=== PATIENT | female | born 1985 | race Asian ===

== ENCOUNTER 2017-09-25 02:29 | Emergency (ER) | payer OTHER ==
[~2017-09-25] VITALS: Ht 172.7 cm; Wt 61.8 kg
[2017-09-25] MEDS ORDERED: ONDANSETRON 2MG/ML, 2ML ONE (02:55)
[2017-09-25] MEDS ORDERED: MORPHINE SULFATE 4 MG/ML, 1ML ONE (02:55)
[2017-09-25] MEDS ORDERED: KETOROLAC 30 MG/1 ML ONE (02:55)
[2017-09-25] MEDS ORDERED: ONDANSETRON 2MG/ML, 2ML IVPush ONE (03:00)
[2017-09-25] MEDS ORDERED: MORPHINE SULFATE 4 MG/ML, 1ML IVPush PRN (03:00)
[2017-09-25] MEDS ORDERED: SODIUM CHLORIDE 0.9% 1,000ML IV ONE (03:00)
[2017-09-25] MEDS ORDERED: KETOROLAC 30 MG/1 ML IVPush ONE (03:00)
[2017-09-25 03:09] LABS: BASOPHILS % (AUTO) 0 % (0-1); EOSINOPHILS # (AUTO) 0.01 x10^3/uL (0-0.4); EOSINOPHILS % (AUTO) 0 % (1-7); LYMPHOCYTES # (AUTO) 0.81 x10^3/uL (1-3.4); LYMPHOCYTES % (AUTO) 6 % (22-44); MD NO; MEAN CORPUSCULAR HEMOGLOBIN 32.5 pg (27.0-34.8); MEAN CORPUSCULAR HGB CONC 33.5 g/dL (32.4-35.8); MEAN CORPUSCULAR VOLUME 96.9 fL (80-100); MEAN PLATELET VOLUME 7.9 fL (7.4-10.4); MONOCYTES # (AUTO) 0.58 x10^3/uL (0.2-0.8); MONOCYTES % (AUTO) 4 % (2-9); NEUTROPHILS # (AUTO) 12.12 x10^3/uL (1.8-6.8); NEUTROPHILS % (AUTO) 90 % (42-75); PLATELET COUNT 299 x10^3/uL (130-400); RED BLOOD COUNT 4.17 x10^6/uL (3.82-5.3); RED CELL DISTRIBUTION WIDTH 12.6 % (9.6-15.2)
[2017-09-25 03:18] LABS: MICROSCOPIC AUTO
[2017-09-25 03:19] LABS: CULTURE INDICATED? YES
[2017-09-25 03:20] LABS: HCG UR SG 1.018 (1.003-1.030)
[2017-09-25 03:21] LABS: ALBUMIN 4.3 g/dL (3.4-5.0); ANION GAP 7 mmol/L (5-15); CALCIUM 8.9 mg/dL (8.5-10.1); CHLORIDE 103 mmol/L (98-107); CREATININE 0.71 mg/dL (0.55-1.02)
[2017-09-25 04:16] VITALS: BP 123/78
== END 2017-09-25 05:01 | disposition home or self-care (01) ==
LOC: ED 03:16
DX: R10.11 Right upper quadrant pain (principal); R30.0 Dysuria; R35.0 Frequency of micturition
CPT/HCPCS: 36415; 74176; 80048; 81001; 81025; 82040; 85025; 87077; 87086; 96374; 96375; 99285; J1885; J2405; J7030; 87186

== ENCOUNTER 2018-04-21 09:33 | Emergency (ER) | payer OTHER ==
[~2018-04-21] VITALS: Ht 172.7 cm; Wt 58.4 kg
[2018-04-21 10:29] LABS: BASOPHILS # (AUTO) 0.02 x10^3/uL (0-0.1); BASOPHILS % (AUTO) 0 % (0-1); EOSINOPHILS # (AUTO) 0.04 x10^3/uL (0-0.4); EOSINOPHILS % (AUTO) 1 % (1-7); LYMPHOCYTES # (AUTO) 1.89 x10^3/uL (1-3.4); LYMPHOCYTES % (AUTO) 34 % (22-44); MD NO; MEAN CORPUSCULAR VOLUME 97.2 fL (80-100); MEAN PLATELET VOLUME 8.5 fL (7.4-10.4); MONOCYTES # (AUTO) 0.38 x10^3/uL (0.2-0.8); MONOCYTES % (AUTO) 7 % (2-9); NEUTROPHILS # (AUTO) 3.23 x10^3/uL (1.8-6.8); NEUTROPHILS % (AUTO) 58 % (42-75); PLATELET COUNT 301 x10^3/uL (130-400); RED CELL DISTRIBUTION WIDTH 12.9 % (9.6-15.2)
[2018-04-21] MEDS ORDERED: ASPIRIN 81 MG TABLET CHEW PO ONE (10:30)
[2018-04-21 10:38] LABS: ALANINE AMINOTRANSFERASE 13 U/L (12-78); ALBUMIN 4.3 g/dL (3.4-5.0); ANION GAP 6 mmol/L (5-15); CALCIUM 8.9 mg/dL (8.5-10.1); CHLORIDE 107 mmol/L (98-107); CREATININE 0.77 mg/dL (0.55-1.02)
[2018-04-21] MEDS ORDERED: ASPIRIN 81 MG TABLET CHEW ONE (10:38)
[2018-04-21 10:41] LABS: ALKALINE PHOSPHATASE 42 U/L (45-117); BILIRUBIN,TOTAL 0.6 mg/dL (0.2-1.0); TOTAL PROTEIN 8.6 g/dL (6.4-8.2); TROPONIN I < 0.015 ng/mL (0.000-0.045)
[2018-04-21] MEDS ORDERED: SODIUM CHLORIDE FLUSH 10ML SYR IVF ONE (11:00)
[2018-04-21] MEDS ORDERED: OMNIPAQUE 350 MG/ML, 100ML BOTTLE ONE (12:05)
[2018-04-21 12:31] VITALS: BP 110/72
== END 2018-04-21 12:54 | disposition home or self-care (01) ==
LOC: ED 12:48
DX: R07.89 Other chest pain (principal); R20.2 Paresthesia of skin; Z88.1 Allergy status to other antibiotic agents
CPT/HCPCS: 36415; 71045; 71275; 80053; 83690; 84484; 85025; 85379; 93005; 99285; Q9967